=== PATIENT | female | born 1945 | race Caucasian/White ===

== ENCOUNTER 2016-10-18 20:41 | Inpatient (IN) | payer OTHER ==
[~2016-10-18] VITALS: Ht 157.5 cm; Wt 88.8 kg
[2016-10-18 21:57] LABS: HEMATOCRIT 39.2 % (36.0-46.0); MCH 29.9 PG (29.0-34.0); MCHC 33.7 G/DL (30.0-36.0); MCV 88.9 FL (83-99); MEAN PLAT.VOLUME 9.5 uM^3 (9.5-12.4); PLATELET COUNT 396 K/uL (156-360); RBC DIS.WIDTH-CV 12.8 % (11.8-14.6); RBC DIS.WIDTH-SD 41.8 % (39-53); RED BLOOD COUNT 4.41 M/uL (3.80-5.20); WHITE BLOOD COUNT 16.5 K/uL (4.1-10.2)
[2016-10-18 22:06] LABS: CHLORIDE 95 mEq/L (99-109); POTASSIUM 3.5 mEq/L (3.7-5.4); SODIUM 133 mEq/L (136-147)
[2016-10-18 22:07] LABS: MAGNESIUM 1.5 mg/dL (1.3-2.7)
[2016-10-18 22:09] LABS: GLUCOSE 107 mg/dL (70-99)
[2016-10-18 22:10] LABS: ANION GAP 16 MEQ/L (2-14)
[2016-10-18 22:11] LABS: TOTAL BILIRUBIN 0.4 mg/dL (0.0-1.0)
[2016-10-18 22:12] LABS: ALKALINE PHOSPHATASE 82 IU/L (3-129); SERUM ETHYL ALCOHOL 175 mg/dL
[2016-10-18 22:13] LABS: GFR ESTIMATE (CALCULATED) > 59 mL/min/
[2016-10-18 22:14] LABS: UREA NITROGEN (BUN) 11 mg/dL (9-23)
[2016-10-18 22:22] LABS: TROP-I INTERPRETATION NEGATIVE; TROPONIN-I < 0.01 ng/mL (0.0-0.30)
[2016-10-19 02:07] LABS: ADD MIUA? NO; BILIRUBIN NEGATIVE; BLOOD NEGATIVE; COLOR YELLOW ((YELLOW)); GLUCOSE (STRIP) NEGATIVE; KETONES 5; LEUKOCYTES NEGATIVE; NITRITE NEGATIVE; PROTEIN (STRIP) 30; UROBILINOGEN 0.2 MG/DL (0.2-1.0)
[2016-10-19] MEDS ORDERED: HYDROCHLOROTHIA25 MG PO (12:59)
[2016-10-19] MEDS ORDERED: CALTRATE PLUS1 EACH PO (13:00)
[2016-10-19] MEDS ORDERED: ZYRTEC10 M3 PO (13:00)
[2016-10-19 14:40] VITALS: BP 220/98
[2016-10-19 18:33] VITALS: BP 190/81
[2016-10-19 20:00] VITALS: BP 187/90
[2016-10-19 23:12] VITALS: BP 130/72
[2016-10-20 03:46] VITALS: BP 142/74
[2016-10-20 07:25] LABS: HEMATOCRIT 37.5 % (36.0-46.0); MCH 29.7 PG (29.0-34.0); MCHC 33.1 G/DL (30.0-36.0); MCV 89.7 FL (83-99); MEAN PLAT.VOLUME 9.8 uM^3 (9.5-12.4); PLATELET COUNT 359 K/uL (156-360); RBC DIS.WIDTH-CV 13.2 % (11.8-14.6); RBC DIS.WIDTH-SD 43.6 % (39-53); RED BLOOD COUNT 4.18 M/uL (3.80-5.20); WHITE BLOOD COUNT 11.6 K/uL (4.1-10.2)
[2016-10-20 07:39] LABS: ANION GAP 9 MEQ/L (2-14); CHLORIDE 102 MEQ/L (99-109); GFR ESTIMATE (CALCULATED) > 59 mL/min/; GLUCOSE 109 mg/dL (70-99); MAGNESIUM 1.8 mg/dl (1.3-2.7); SAMPLE HEMOLYSIS CHECK 2; SAMPLE ICTERIC CHECK 0; SAMPLE LIPEMIA CHECK 0; SODIUM 135 MEQ/L (136-147); UREA NITROGEN (BUN) 9 mg/dL (9-23)
[2016-10-20 07:40] VITALS: BP 179/86
[2016-10-20 07:41] LABS: POTASSIUM 4.6 MEQ/L (3.7-5.4)
[2016-10-20 11:40] VITALS: BP 140/73
[2016-10-20 16:05] VITALS: BP 149/75
[2016-10-20 23:41] VITALS: BP 158/74
[2016-10-21 10:58] LABS: HEMATOCRIT 39.9 % (36.0-46.0); MCH 31.1 PG (29.0-34.0); MCHC 32.8 G/DL (30.0-36.0); MEAN PLAT.VOLUME 10.4 uM^3 (9.5-12.4); PLATELET COUNT 298 K/uL (156-360); RBC DIS.WIDTH-CV 13.9 % (11.8-14.6); RBC DIS.WIDTH-SD 47.8 % (39-53); RED BLOOD COUNT 4.21 M/uL (3.80-5.20); WHITE BLOOD COUNT 13.3 K/uL (4.1-10.2)
[2016-10-21 11:27] LABS: ANION GAP 10 MEQ/L (2-14); CHLORIDE 107 MEQ/L (99-109); GFR ESTIMATE (CALCULATED) > 59 mL/min/; GLUCOSE 87 mg/dL (70-99); POTASSIUM 3.8 MEQ/L (3.7-5.4); SAMPLE HEMOLYSIS CHECK 0; SAMPLE ICTERIC CHECK 0; SAMPLE LIPEMIA CHECK 0; SODIUM 139 MEQ/L (136-147); UREA NITROGEN (BUN) 13 mg/dL (9-23)
[2016-10-21 11:44] LABS: MCV 94.8 FL (83-99)
[2016-10-21 11:45] LABS: PLAT.SUFFICIENCY ADEQUATE
[2016-10-21] MEDS ORDERED: ASPIRIN EC325 MG PO (12:20)
[2016-10-21] MEDS ORDERED: LISINOPRIL10 MG PO (12:20)
[2016-10-21] MEDS ORDERED: POLYETHYLENE GL17 GM PO (12:21)
[2016-10-21] MEDS ORDERED: DOCUSATE SODIU100 MG PO (12:21)
[2016-10-21 12:39] VITALS: BP 139/64
[2016-10-21] MEDS ORDERED: HYDROCODON-ACE1 EAC7 PO (13:30)
[2016-10-21] MEDS ORDERED: morphine Sulfate IV (13:30)
== END 2016-10-21 15:28 | DRG 493 ==
LOC: TRA 20:41 → EME 20:41 → EDBD 20:41 → 3EAST 10-19 08:41 → EDOF 10-19 08:41 → ENRESERV 10-19 08:43 → EDOF 10-19 08:54 → ENRESERV 10-19 11:46 → 3EAST 10-19 14:05
PROVIDERS: Internal Medicine; Physician Assistant; Physician Assistant Medical
PROC: 0QSJ04Z Reposition Right Fibula with Internal Fixation Device, Open Approach (ICD-10-PCS; principal; 2016-10-19)
PROC: 0QSG04Z Reposition Right Tibia with Internal Fixation Device, Open Approach (ICD-10-PCS; principal; 2016-10-19)
DX: S82.841A Displaced bimalleolar fracture of right lower leg, initial encounter for closed fracture (principal); S22.42XA Multiple fractures of ribs, left side, initial encounter for closed fracture; W10.9XXA Fall (on) (from) unspecified stairs and steps, initial encounter; Y92.009 Unspecified place in unspecified non-institutional (private) residence as the place of occurrence of the external cause; E87.1 Hypo-osmolality and hyponatremia; E87.6 Hypokalemia; D72.829 Elevated white blood cell count, unspecified; R41.0 Disorientation, unspecified; I10 Essential (primary) hypertension; F10.129 Alcohol abuse with intoxication, unspecified; Y90.6 Blood alcohol level of 120-199 mg/100 ml; E66.3 Overweight; Z68.35 Body mass index [BMI] 35.0-35.9, adult; Z87.891 Personal history of nicotine dependence
CPT/HCPCS: 70450; 70551; 71010; 71020; 71100; 72125; 73590; 73600; 73610; 76000; 80048; 80053; 81003; 82140; 83735; 84484; 85027; 93005; 97530 GP; 99281; 99285; C1713; G0480; J0690; J1100; J1885; J2250; J2270; J2405; J3010; J7030

== ENCOUNTER 2016-10-21 11:06 | Inpatient (IN) | payer OTHER ==
[~2016-10-21] VITALS: Ht 157.5 cm; Wt 69.5 kg
[~2016-10-21 11:06] MED LIST: CALTRATE PLUS1 EACH PO; HYDROCHLOROTHIA25 MG PO; ZYRTEC10 M3 PO
[2016-10-21] MEDS ORDERED: ASPIRIN EC325 MG PO (12:20)
[2016-10-21] MEDS ORDERED: LISINOPRIL10 MG PO (12:20)
[2016-10-21] MEDS ORDERED: POLYETHYLENE GL17 GM PO (12:21)
[2016-10-21] MEDS ORDERED: DOCUSATE SODIU100 MG PO (12:21)
[2016-10-21] MEDS ORDERED: HYDROCODON-ACE1 EAC7 PO (13:30)
[2016-10-21] MEDS ORDERED: morphine Sulfate IV (13:30)
[2016-10-21 16:26] VITALS: BP 174/79
[2016-10-21 18:58] LABS: HEMATOCRIT 37.3 % (36.0-46.0); MCH 30.7 PG (29.0-34.0); MEAN PLAT.VOLUME 9.7 uM^3 (9.5-12.4); PLATELET COUNT 349 K/uL (156-360); RBC DIS.WIDTH-CV 13.5 % (11.8-14.6); RBC DIS.WIDTH-SD 46.4 % (39-53); RED BLOOD COUNT 4.01 M/uL (3.80-5.20); WHITE BLOOD COUNT 13.5 K/uL (4.1-10.2)
[2016-10-21 19:23] LABS: ALKALINE PHOSPHATASE 66 IU/L (3-129); ANION GAP 10 MEQ/L (2-14); CHLORIDE 105 MEQ/L (99-109); GFR ESTIMATE (CALCULATED) > 59 mL/min/; GLUCOSE 101 mg/dL (70-99); POTASSIUM 4.2 MEQ/L (3.7-5.4); SAMPLE HEMOLYSIS CHECK 0; SAMPLE ICTERIC CHECK 0; SAMPLE LIPEMIA CHECK 0; SODIUM 137 MEQ/L (136-147); TOTAL BILIRUBIN 0.5 MG/DL (0.0-1.0); UREA NITROGEN (BUN) 15 mg/dL (9-23)
[2016-10-22 06:10] VITALS: BP 152/86
[2016-10-22 11:00] LABS: MCHC 33.6 G/DL (30.0-36.0); MCV 92.2 FL (83-99); MEAN PLAT.VOLUME 9.6 uM^3 (9.5-12.4); PLATELET COUNT 395 K/uL (156-360); RBC DIS.WIDTH-CV 13.4 % (11.8-14.6); RBC DIS.WIDTH-SD 45.4 % (39-53); RED BLOOD COUNT 4.23 M/uL (3.80-5.20); WHITE BLOOD COUNT 14.5 K/uL (4.1-10.2)
[2016-10-22 15:13] VITALS: BP 177/74
[2016-10-23 05:15] VITALS: BP 178/84
[2016-10-23 08:25] VITALS: BP 124/59
[2016-10-23 15:42] VITALS: BP 208/90
[2016-10-23 16:31] VITALS: BP 170/90
[2016-10-23 17:36] VITALS: BP 146/72
[2016-10-24 04:55] VITALS: BP 160/79
[2016-10-24 15:43] VITALS: BP 146/77
[2016-10-25 05:43] VITALS: BP 144/68
[2016-10-25 15:18] VITALS: BP 160/79
[2016-10-26 04:31] VITALS: BP 129/67
[2016-10-26 16:04] VITALS: BP 131/70
[2016-10-27 05:10] VITALS: BP 142/75
[2016-10-27 15:43] VITALS: BP 122/58
[2016-10-28 05:40] VITALS: BP 135/67
[2016-10-28 15:39] VITALS: BP 127/59
[2016-10-29 05:15] VITALS: BP 121/56
[2016-10-29 15:09] VITALS: BP 149/72
[2016-10-30 05:03] VITALS: BP 144/82
[2016-10-30 15:55] VITALS: BP 127/69
[2016-10-31 04:58] VITALS: BP 134/65
[2016-10-31 16:00] VITALS: BP 144/72
[2016-11-01 05:49] VITALS: BP 109/72
[2016-11-01 15:28] VITALS: BP 138/78
[2016-11-01 21:19] VITALS: BP 136/65
[2016-11-02 05:35] VITALS: BP 132/75
[2016-11-02 15:08] VITALS: BP 139/65
[2016-11-03 05:10] VITALS: BP 136/69
[2016-11-03 15:06] VITALS: BP 110/61
[2016-11-04 06:14] VITALS: BP 132/70
[2016-11-04 15:43] VITALS: BP 178/83
[2016-11-04 16:19] VITALS: BP 148/80
[2016-11-05 05:06] VITALS: BP 127/60
[2016-11-05 06:11] LABS: HEMATOCRIT 33.9 % (36.0-46.0); MCH 31.2 PG (29.0-34.0); MCHC 34.2 G/DL (30.0-36.0); MCV 91.1 FL (83-99); MEAN PLAT.VOLUME 9.8 uM^3 (9.5-12.4); PLATELET COUNT 503 K/uL (156-360); RBC DIS.WIDTH-CV 12.9 % (11.8-14.6); RBC DIS.WIDTH-SD 43.1 % (39-53); RED BLOOD COUNT 3.72 M/uL (3.80-5.20); WHITE BLOOD COUNT 8.4 K/uL (4.1-10.2)
[2016-11-05 06:36] LABS: ALKALINE PHOSPHATASE 93 IU/L (3-129); ANION GAP 7 MEQ/L (2-14); CHLORIDE 95 MEQ/L (99-109); GFR ESTIMATE (CALCULATED) > 59 mL/min/; GLUCOSE 92 mg/dL (70-99); POTASSIUM 4.4 MEQ/L (3.7-5.4); SAMPLE HEMOLYSIS CHECK 0; SAMPLE ICTERIC CHECK 0; SAMPLE LIPEMIA CHECK 0; SODIUM 132 MEQ/L (136-147); TOTAL BILIRUBIN 0.4 MG/DL (0.0-1.0); UREA NITROGEN (BUN) 18 mg/dL (9-23)
[2016-11-05 15:30] VITALS: BP 129/60
[2016-11-06] MEDS ORDERED: ASPIRIN EC325 MG PO (00:05)
[2016-11-06] MEDS ORDERED: SENNA PLUS TAB1 EACH PO (00:05)
[2016-11-06] MEDS ORDERED: HYDROCODON-ACE1 EAC7 PO (00:05)
[2016-11-06] MEDS ORDERED: LISINOPRIL10 MG PO (00:05)
[2016-11-06 04:53] VITALS: BP 127/58
== END 2016-11-06 10:48 | disposition home health service (06) | DRG 560 ==
LOC: 3WEST 11:06 → ENPENDDIS 11-06 → 3WEST 11-06 10:48
PROVIDERS: Physical Medicine & Rehabilitation; Physical Medicine & Rehabilitation Pain Medicine; Physician Assistant
PROC: F07M0ZZ Range of Motion and Joint Mobility Treatment of Musculoskeletal System - Whole Body (ICD-10-PCS; principal; 2016-10-21)
DX: S82.51XD Displaced fracture of medial malleolus of right tibia, subsequent encounter for closed fracture with routine healing (principal); S82.61XD Displaced fracture of lateral malleolus of right fibula, subsequent encounter for closed fracture with routine healing; S22.42XD Multiple fractures of ribs, left side, subsequent encounter for fracture with routine healing; R26.2 Difficulty in walking, not elsewhere classified; E87.1 Hypo-osmolality and hyponatremia; I10 Essential (primary) hypertension; K59.00 Constipation, unspecified
CPT/HCPCS: 73610; 80053; 81003; 85027; 97110 GO; 97530 GP